=== PATIENT | female | born 1995 | race African-American/Black ===

== ENCOUNTER 2016-06-21 16:36 | Inpatient (IN) | payer OTHER ==
[2016-06-21 17:42] LABS: HEMOGLOBIN 12.3 gm/dl (12.3-15.3); RED BLOOD COUNT 4.11 M/UL (4.00-5.10); WHITE BLOOD COUNT 10.8 K/UL (4.5-11.0)
[2016-06-24 03:06] LABS: HEMOGLOBIN 10.2 gm/dl (12.3-15.3)
[2016-06-24] MEDS ORDERED: NORCO 5-325 TA1 EACH PO (12:32)
[2016-06-24] MEDS ORDERED: COLACE 100MG C100 MG PO (12:32)
== END 2016-06-24 12:24 | disposition home or self-care (01) | DRG 775 ==
LOC: GENOP 16:36 → OB 17:11
PROVIDERS: ADMIT Obstetrics & Gynecology
PROC: 3E0234Z Introduction of Serum, Toxoid and Vaccine into Muscle, Percutaneous Approach (ICD-10-PCS; 2016-06-22)
PROC: 10E0XZZ Delivery of Products of Conception, External Approach (ICD-10-PCS; principal; 2016-06-23)
PROC: 10907ZC Drainage of Amniotic Fluid, Therapeutic from Products of Conception, Via Natural or Artificial Opening (ICD-10-PCS; 2016-06-23)
PROC: 0U7C7ZZ Dilation of Cervix, Via Natural or Artificial Opening (ICD-10-PCS; 2016-06-23)
DX: O80 Encounter for full-term uncomplicated delivery (principal); Z3A.40 40 weeks gestation of pregnancy; Z37.0 Single live birth; Z23 Encounter for immunization
CPT/HCPCS: 36415; 51702; 81001; 82800; 85014; 85018; 85025; 90715; J2210; J2405; J2590; J2765; J2795; J3430; J7120